=== PATIENT | male | born 1955 ===

== ENCOUNTER 2018-10-05 11:47 | Inpatient (IN) | payer OTHER ==
[~2018-10-05] VITALS: Ht 177.8 cm; Wt 525.3 kg
--- NOTE | 2018-10-05 12:16 | NUR ---
PACIENTE AL MOMENTO ESTABLE, ALERTA Y ORIENTADO X3 ACOMPANADO DE FAMILIAR, AL MOMENTO REFIERE QUE BUTCH DEXTRO EL CUAL ALVERTO UN RESULTADO DE 600MG/DL, AL MOMENTO SE NABEEL DEXTRO Y DA UN RESULTADO DE >500MG/DL, SE PASA A AREA DE OBSERVACION Y SE ENTREGA PACIENTE A ÁLVARO. LATESHA, SE CONTINUA MONITOREANDO POR CAMBIOS.
--- NOTE | 2018-10-05 13:57 | NUR ---
SE RECIBE PACIENTE EN UNIDAD DE CRITICO CAMA #1 MASCULINO DE 63 ANOS,ALERTA,ORIENTADO EN KARYN ESFERAS.SE UBICA EN CAMA CON BARANDAS ELEVADAS,FRENOS,ADAMS DE IDENTIFICACION COLOCADOS POR SEGURIDAD. CONECTADO A MONITOR CARDIACO.OXIMETRIA DE PULSO CONTINUA,CANULA NASAL 3LTS. VENOPUNCIONES PATENTES GLENNA DE S/S EDEMA Y/O ERITEMA. IVFS PATENTES 0.9%NSS FULL DRIP EN BRAZO DERECHO. 0.9%NSS @125ML/HR,DRIP INSULINA R 10ML/HR BRAZO JOHN. SE MONITOREA DXT CADA HORA. SE MANTIENE PACIENTE BAJO OBSERVACION RIVKA.
--- NOTE | 2018-10-05 17:11 | NUR ---
SE RECIBE PTE ALERTA Y ORIENTADO X3 EN CAMA CON BARANDAS ELEVADAS. SE RECIBE PTE CANALIZADO EN HOMBRO JOHN AREA GLENNA DE EDEMA Y DE ENROJECIMIENTO. SE RECIBE PTE CANALIZADO EN BRAZO DERECHA AREA GLENNA DE EDEMA Y DE ENROJECIMIENTO. SE RECIBE PTE CON CANULA NASAL A 2L. SE RECIBE PTE CON TAM DRENANDO 100ML DE COLOR AMARILLO MARTÍN. SE RECIBE PTE CON DRIP DE INSULINA 100U/100ML BAJANDO A 10ML/HR. .9NSS BAJANDO A 150ML/HR. SE LE REALIZA EKG Y SE LE PRESENTA A . SE LE MALLY DXT CADA RADHA HORA [facility]. SE LE ADMINISTRA SODIUM BIC.50MEQ/50ML IV PUSH [facility]. SE LE OTMAN MUESTRAS DE LAB. [facility] Y SE EDUCA A PTE SOBRE TRATAMIENTO MEDICO. PTE SE MANTIENE BAJO OBSERVACION POR CAMBIOS.
== END 2018-10-08 16:04 | disposition home or self-care (01) | DRG 638 ==
LOC: ER 11:47 → ICU-2 18:37 → ICU 10-06 03:29 → MEDJ 10-07 17:27
PROVIDERS: ADMIT Internal Medicine
DX: E11.10 Type 2 diabetes mellitus with ketoacidosis without coma (principal); N17.8 Other acute kidney failure; E11.00 Type 2 diabetes mellitus with hyperosmolarity without nonketotic hyperglycemic-hyperosmolar coma (NKHHC)